=== PATIENT | male | born 1945 | race African-American/Black ===

== ENCOUNTER 2020-09-25 08:13 | Emergency (ER) | payer MEDICAID, SELFPAY ==
[2020-09-25] VITALS (9 sets, daily range): BP systolic 114–137; BP diastolic 69–89; PULSE 67–84; RESP 10–14; TEMP 36.4; O2SAT 98–100
--- NOTE | ~2020-09-25 | XR_ITS ---
EXAMINATION: XR chest 1V portable DATE: 09/25/2020 09:15 INDICATION: Weakness. Syncopal episode. TECHNIQUE: frontal view of the chest was obtained. COMPARISON: None FINDINGS: [place] of small relatively dense nodular opacities at the medial left lung base of the vertebral phrenic angle. Remainder of the lungs are clear. No pulmonary edema, pleural effusion or pneumothorax . The cardiomediastinal silhouette is normal. Mild to moderate thoracic spondylosis. IMPRESSION: 1. Cluster of small relatively dense nodular opacities at the medial left lung base with density sugg esting calcification either granulomatous disease or potentially mitral annular calcification. Pneumo carlos or other lung disease considered less likely. Reviewed, dictated and finalized at location A. IMPRESSION: 1. Cluster of small relatively dense nodular opacities at the medial left lung base with density suggesting calcification either granulomatous disease or pote ntially mitral annular calcification. Pneumonia or other lung disease considere d less likely.
--- NOTE | 2020-09-25 08:42 | ECG_ITS ---
Measurements Intervals [place] Rate: 69 P: 63 SC: 184 QRS: -31 QRSD: 97 T: 156 QT: 406 QTc: 437 Interpretive Statements SINUS RHYTHM ATRIAL AND VENTRICULAR PREMATURE COMPLEXES LEFT AXIS DEVIATION INFERIOR INFARCT, AGE INDETERMINATE BORDERLINE T WAVE ABNORMALITY- HIGH LATERAL LEADS BASELINE ARTIFACT- I, II, III, AVR, AVL, AVF, V1-V6 ABNORMAL ECG Electronically Signed On 09-25-2020 16:05:48 CDT by Jefry Abebe D.O.
[2020-09-25] MEDS: SODIUM CHLORIDE 0.9% IV 1,000 ML 999 ML IV CONT (08:48)
[2020-09-25 09:22] LABS: Basophils Absolute Auto 0.1 K/mm3 (0.0-0.1); Basophils Percent Auto 0.8 % (0.2-1.2); Eosinophils Absolute Auto 0.1 K/mm3 (0-0.3); Eosinophils Percent Auto 1.8 % (0-4.4); Hematocrit 38.9 % (42.0-52.0); Hemoglobin 12.8 g/dL (14.0-18.0); Immature Granulocyte Absolute 0.03 K/mm3 (0.00-0.031); Immature Granulocyte Percent A 0.5 % (0-0.5); Lymphocytes Absolute Auto 1.31 K/mm3 (0.9-3.2); Lymphocytes Percent Auto 19.9 % (18.3-44.2); Mean Corpuscular HGB Conc 32.9 g/dl (32-36); Mean Corpuscular Hemoglobin 28.1 pg (26-34); Mean Corpuscular Volume 85.3 fl (80-100); Mean Platelet Volume 10.1 fl (7.4-10.4); Monocytes Absolute Auto 0.5 K/mm3 (0.1-0.6); Monocytes Percent Auto 7.8 % (2.6-8.5); Neutrophils Absolute Auto 4.6 K/mm3 (1.3-6.7); Neutrophils Percent Auto 69.2 % (45.5-73.1); Platelet Count Result 208 k/mm3 (150-375); Red Blood Count 4.56 M/mm3 (4.6-6.20); Red Cell Distribution Width 14.5 % (11.5-14.5); White Blood Count 6.6 K/mm3 (4.5-10.0)
[2020-09-25 09:29] LABS: Add Urine Microscopic? YES; Appearance Urine Cloudy (Clear); Bilirubin Urine Negative (Negative); Blood Urine Negative (Negative); Color Urine Yellow (Yellow); Glucose Urine UA Negative (Negative); Ketones Urine Trace mg/dL (Negative); Leukocyte Esterase Ur Negative LEU/UL (Negative); Mucus Urine Rare /lpf; Nitrate Urine Negative (Negative); Protein Urine 2+ mg/dL (Negative); RBC Urine 0-2 /hpf (0-2); Specific Grav Ur 1.015 (1.001-1.035); Squamous Epithelial Cell Urine Rare /hpf (Few)
[2020-09-25 09:34] LABS: INR 0.9; Partial Thromboplastin Time 28.1 SECONDS (22.3-36.8); Prothrombin Time 12.8 Seconds (11.1-14.7)
[2020-09-25 09:39] LABS: Anion Gap 2 mmol/L (8-16); Blood Urea Nitrogen 15 mg/dL (9-20); Calcium 8.5 mg/dL (8.4-10.2); Carbon Dioxide 35 mmol/L (22-30); Chloride 102 mmol/L (98-107); Estimated CRCL calculation 96 ml/min; Estimated Glomerular Filt Rate > 60; Glucose 157 mg/dL (75-110); Potassium 4.1 mmol/L (3.4-5.0); Sodium 139 mmol/L (137-145)
--- NOTE | 2020-09-25 09:43 | ED.SYNCOPE ---
HPI - Syncope General Chief Complaint: Syncope Stated Complaint: SYNCOPE Time Seen by Provider: 09/25/20 08:17 History of Present Illness HPI narrative: Patient is a 74-year-old male with history of dementia who presents to the ER after having a syncopal episode at breakfast. EMS reports that [facility] patient had a blood pressure in the 40s. Upon arrival his blood pressure was in the 140s. He is oriented x1 which is at baseline. Patient had no evidence of trauma and they reported no trauma. Patient did apparently have a large bowel movement that they get to clean before transferring him here. Patient cannot give any history. Related Data Home Medications Medication Instructions Recorded Confirmed acetaminophen 325 mg PO ONCE PRN 09/25/20 amlodipine 10 mg PO DAILY 09/25/20 aspirin 81 mg PO DAILY 09/25/20 atenolol 100 mg PO DAILY 09/25/20 cholecalciferol (vitamin D3) 25 mcg PO DAILY 09/25/20 coal tar [Daniel-Gel Tar Shampoo] 1 applic TOPICAL DAILY 09/25/20 ibuprofen 400 mg PO TID PRN 09/25/20 linagliptin [Tradjenta] 5 mg PO QAM 09/25/20 lorazepam [Ativan] 1 mg PO DAILY 09/25/20 mecobalamin (vitamin B12) 1,000 mcg PO DAILY 09/25/20 metformin 1,000 mg PO BID 09/25/20 [id number]-vit K tablet PO 09/25/20 [Adults Multivitamin] polyethylene glycol 3350 [Miralax] 17 g PO DAILY 09/25/20 Allergies Allergy/AdvReac Type Severity Reaction Status Date / Time lactose Allergy Unknown Verified 09/25/20 08:28 simvastatin Allergy Unknown Verified 09/25/20 08:28 Review of Systems Review of Systems: ROS unobtainable: Yes unobtainable due to mental status PMFSH Past Medical History Medical History (Updated 09/25/20 @ 11:24 by Guilherme Frost MD) Dementia Diabetes mellitus type 2 in nonobese Glaucoma Hyperlipidemia Hypertension Surgical History Surgical History (Updated 09/25/20 @ 09:46 by Guilherme Frost MD) No pertinent past surgical history Social History Social History (Updated 09/25/20 @ 09:47 by Guilherme Frost MD) Social History: Resides at [facility]. Patient is a full code. Exam Narrative: Exam Narrative: GENERAL: Chronically ill-appearing, well-nourished, and in no acute distress. HEAD: Normocephalic, atraumatic. EYES: PERRL and EOMI. ENT: Mucous membranes moist. CHEST: Clear to auscultation. No respiratory distress. HEART: Regular rate and rhythm. Normal peripheral pulses. ABDOMEN: Soft, nontender, nondistended. EXTREMITIES: Normal range of motion. No deformity. SKIN: Warm, dry, no rash. NEURO: Alert and oriented x1. Course Course Emergency Course: Unremarkable work-up. No orthostasis. Hydrated. Discharge back to facility. Patient may have vasovagal episode from defecation. Vital Signs Vital signs: Vital Signs Temperature 97.6 F 09/25/20 08:14 Pulse Rate 71 09/25/20 08:14 Respiratory Rate 14 09/25/20 08:14 Blood Pressure 135/84 09/25/20 08:14 Pulse Oximetry 99 09/25/20 08:14 Temperature 97.6 F 09/25/20 08:14 Pulse Rate 67 09/25/20 11:19 Respiratory Rate 12 09/25/20 11:19 Blood Pressure 116/69 09/25/20 11:19 Pulse Oximetry 100 09/25/20 11:19 MDM - Syncope Lab Data Result diagrams: 09/25/20 09:15 09/25/20 09:15 Labs: Lab Results 09/25/20 09/25/20 09/25/20 Range/Units 09:06 09:15 09:15 WBC 6.6 (4.5-10.0) K/mm3 RBC 4.56 L (4.6-6.20) M/mm3 Hgb 12.8 L (14.0-18.0) g/dL Hct 38.9 L (42.0-52.0) % MCV 85.3 (80-100) fl MCH 28.1 (26-34) pg MCHC 32.9 (32-36) g/dl RDW 14.5 (11.5-14.5) % Plt Count 208 (150-375) k/mm3 MPV 10.1 (7.4-10.4) fl Immature Gran % (Auto) 0.5 (0-0.5) % Neut % (Auto) 69.2 (45.5-73.1) % Lymph % (Auto) 19.9 (18.3-44.2) % [place] % (Auto) 7.8 (2.6-8.5) % Eos % (Auto) 1.8 (0-4.4) % Baso % (Auto) 0.8 (0.2-1.2) % Lymph # (Auto) 1.31 (0.9-3.2) K/mm3 M
[2020-09-25 09:51] LABS: Troponin I < 0.012 ng/mL (0.000-0.034)
== END 2020-09-25 12:30 ==
PROVIDERS: Emergency Provider Emergency Medicine; PCP Internal Medicine
DX: R55 Syncope and collapse (principal); F03.90 Unspecified dementia, unspecified severity, without behavioral disturbance, psychotic disturbance, mood disturbance, and anxiety; E11.9 Type 2 diabetes mellitus without complications; E78.5 Hyperlipidemia, unspecified; I10 Essential (primary) hypertension; H40.9 Unspecified glaucoma; Z79.82 Long term (current) use of aspirin; Z79.84 Long term (current) use of oral hypoglycemic drugs; I49.1 Atrial premature depolarization; I49.3 Ventricular premature depolarization; R94.31 Abnormal electrocardiogram [ECG] [EKG]
CPT/HCPCS: 36415; 71045; 80048; 81001; 84484; 85025; 85610; 85730; 93005; 96360; 99284; J7030